=== PATIENT | male | born 2000 | race Caucasian/White ===

== ENCOUNTER 2025-01-24 22:27 | Emergency (ER) | payer OTHER ==
[~2025-01-24] VITALS: Ht 175.3 cm; Wt 59.5 kg
[2025-01-24] MEDS: TETanus/Pertussis (Acell)/Diphther VAC/PF (Tdap-Adult) 0.5ml syringe IMVAC ONE (23:31)
[2025-01-24] MEDS: amox tr/potassium clavulanate 875/125mg TAB PO ONE (23:32)
[2025-01-24] MEDS ORDERED: AMOX-117 PO (23:33)
[2025-01-24 23:34] VITALS: BP 127/81; PULSE 98; RESP 18; TEMP 98.4; O2SAT 100
== END 2025-01-24 23:41 | disposition home or self-care (01) ==
LOC: ER 22:28
DX: S60.311A Abrasion of right thumb, initial encounter (principal); W54.0XXA Bitten by dog, initial encounter; Y93.89 Activity, other specified; Y92.89 Other specified places as the place of occurrence of the external cause; Y99.8 Other external cause status
CPT/HCPCS: 90471; 90715; 99283

== ENCOUNTER 2025-10-31 13:25 | Inpatient (IN) | payer OTHER ==
[~2025-10-31] VITALS: Ht 177.8 cm; Wt 59.1 kg
[2025-10-31 14:03] LABS: MEAN PLATELET VOLUME 8.8 FL (7.4-10.4); RED CELL DISTRIBUTION WIDTH 19.5 % (11.5-14.5)
--- NOTE | 2025-10-31 14:10 | Physician Documentation ---
History of Present Illness Chief Complaint: Abdominal Pain Stated Complaint: ABD PAIN/VOMITING Time Seen by MD: 13:56 Mode of Arrival: POV HPI The patient is a 25-year-old male with no significant past medical history who presents with two days of lower abdominal pain. He reports constipation but has been passing small stools today. He has been taking sodium docusate. He has had recurrent vomiting today. No blood. The patient admits to drinking around six shots of whiskey daily. Medication Reconciliation Allergies: Coded Allergies: No Known Allergies (Unverified , 10/31/25) Review of Systems ROS A 10 system review is negative except as noted in the HPI. Physical Exam Vital Signs: Temperature: 98.4, Source: Temporal, Heart Rate: 123, Respiratory Rate: 16, BP: 138/83, Pulse Oximetry: 98, Weight: 59.090 Oxygen Flow Rate: 0 Physical Exam Physical Exam Vitals and nursing note reviewed. Constitutional: General: Patient is awake, alert, oriented x 4 in no acute distress and well appearing. Speech is clear and lucid. Appearance: Normal appearance. Patient is not ill-appearing, toxic-appearing or diaphoretic. HENT: Head: Normocephalic and atraumatic. Mouth/Throat: Mouth: Mucous membranes are moist. Pharynx: Oropharynx is clear. Eyes: General: No scleral icterus. Extraocular Movements: Extraocular movements intact. Pupils: Pupils are equal, round, and reactive to light. Neck: Supple, no Kernig or Brudzinski sign. Cardiovascular: Rate and Rhythm: Normal rate and regular rhythm. Heart sounds: No murmur heard. Pulmonary: Effort: No respiratory distress. Breath sounds: No wheezing, rhonchi or rales. Abdominal: General: There is no distension. Palpations: There is no fluid wave, hepatomegaly or mass. Tenderness: Lower abdominal tenderness bilaterally. No rebound or guarding. Musculoskeletal: General: No swelling or deformity. Skin: Coloration: Skin is not jaundiced. Findings: No erythema or rash. Neurological: Mental Status: Patient is alert. Progress Progress Note 1819: Accepted by Inpatient medicine physician Dr. Simon, who does request that paracentesis be done in ER prior to patient going up to floor. Results/Orders Results/Orders Orders - DICKSON MENDEZ MD Urinalysis, Cult If Indicated (10/31/25 13:34) Cbc/Diff (10/31/25 13:34) BMP (10/31/25 13:34) Lipase (10/31/25 13:34) CMP (10/31/25 13:34) Procalcitonin (10/31/25 14:03) MG (10/31/25 14:03) Ethanol (10/31/25 14:03) Drug Screen, Urine (10/31/25 14:03) Ct Abdomen Pelvis (10/31/25 14:04) Vital Signs 10/31/25 13:31 Temp 98.4 Pulse 123 Resp 16 B/P (MAP) 138/83 Pulse Ox 98 O2 Flow Rate 0 Laboratory Tests Test 10/31/25 13:45 CBC Comment Chemistry Comments EKG/XRAY/CT/US/VASC/MRI CT : Impression CAT SCAN Patient: DANILO DUTTA Medical Record: [id number] [facility] : 2000, Age: 25 Sex: Male Location: ER Patient Status: [facility] ER Service Date/Time: 10/31/251557 Ordering Physician: DICKSON MENDEZ MD Exam: CT ABDOMEN PELVIS EXAM: CT CT ABDOMEN PELVIS W/ IV CONTRAST History: Lower abdominal pain COMPARISON: None TECHNIQUE: Multidetector spiral CT of the abdomen and pelvis was performed from lung bases to pubic symphysis. Intravenous contrast was administered during this examination. Portal venous imaging was obtained. Axial, coronal and sagittal multiplanar reformats were performed by the technologist on a separate workstation. Radiation Dose : 1. Abdomen/Pelvis: CTDIvol 8.2 mGy, DLP 433 mGy*cm. CONTRAST: Type of contrast: Omnipaque Contrast injected: 100 ml FINDINGS: Lung Bases: No acute or significant lung base finding. Normal heart size. No pleural or pericardial effusion. Liver: Diffuse steatosis. Hepatomegaly measuring up to 20 cm. Gallbladder and Biliary Tree: Unremarkable Spleen: Unremarkable Pancreas: The pancreas is normal in appearance without focal lesions or abnormal enhancement. Adrenal Glands: Unremarkable Kidneys: No hydronephrosis. Bladder: Unremarkable Bowel: The stomach is grossly normal in appearance. No bowel obstruction. Concentric wall thickening throughout the colon is suggestive of infectious/inflammatory colitis. The appendix is not visualized; however, no secondary findings of acute appendicitis identified. Ascites: Moderate to large volume abdominopelvic ascites. Lymphadenopathy: No mesenteric, retroperitoneal or periportal lymphadenopathy. Abdominal Wall and Mesentery: Unremarkable. Vasculature: The visualized abdominal aorta is normal in size and caliber. Abdominal and pelvic vessels demonstrate normal enhancement. Pelvic Organs: Unremarkable Musculoskeletal: No aggressive focal bony lesions, acute fractures or dislocation. IMPRESSION: 1. Concentric wall thickening throughout the colon is suggestive of infectious/inflammatory colitis. 2. Moderate to large volume abdominopelvic ascites. 3. Hepatomegaly and hepatic steatosis. Radiation optimization: All CT scans at this facility use at least one of these dose optimization techniques: automated exposure control mA and/or kV adjustment per patient size (includes targeted exams where dose is matched to clinical indication) or iterative reconstruction. Electronically Signed by:KALPESH GAO MD Date & Time: 10/31/251635 Dictated by: KALPESH GAO MD Dictation date and time: 10/31/251635 Primary Care Provider: NO PRIMARY CARE PROVIDER cc: DICKSON MENDEZ MD ~ Ultrasound : Impression Patient: DANILO DUTTA Medical Record: [id number] [facility] : 2000, Age: 25 Sex: Male Location: ER Patient Status: [facility] ER Service Date/Time: 10/31/251447 Ordering Physician: DICKSON MENDEZ MD Exam: ULTRASOUND OF ABDOMEN CLINICAL INFORMATION: 25 years old, Male; RUQ. TECHNIQUE: Grayscale sonographic imaging of the right upper quadrant of the abdomen was performed, assisted by color Doppler techniques. COMPARISON: None FINDINGS: The gallbladder wall measures 2.4 mm in thickness, within normal limits. No stones are seen. Negative reported sonographic Mendoza's sign. The common bile duct measures 4.9 mm in diameter, within normal limits. Mildly coarsened liver echotexture. Possible nodular contour of the liver. Liver is within normal limits in size, measuring up to 13.8 cm in craniocaudal dimension. Moderate ascites. Portal vein is patent with normal hepatopetal flow. The pancreas is obscured by bowel gas. The right kidney measures 9.3 cm. There is no hydronephrosis. Right renal cortical echogenicity and cortical thickness are within normal limits. IMPRESSION: 1. Coarsened liver echotexture. Possible subtle nodular contour of the liver, may be seen with cirrhosis in the appropriate clinical setting. Correlate with clinical findings. 2. Moderate ascites. 3. No sonographic evidence of acute cholecystitis. Electronically Signed by:DAVID ANDERSON DO Date & Time: 10/31/25 163 Dictated by: DAVID ANDERSON DO Dictation date and time: 10/31/25 163 Primary Care Provider: NO PRIMARY CARE PROVIDER cc: DICKSON MENDEZ MD ~ Medical Decision Making Additional information obtaine: family Findings This 25-year-old male presented with generalized abdominal pain. Laboratory features include transaminitis with elevated bilirubin and small leukocytosis. Ultrasound and CT of the abdomen pelvis both confirm moderate ascites. He will require paracentesis to rule out spontaneous bacterial peritonitis. Our FRONT OFFICE SECRETARY, Arlene Bagley, has kindly agreed to perform this. Differential Dx:Considerations: Esophagitis, Gastritis/PUD, Gastroenteritis, Urinary tract infection, Other Departure Disposition: ADMITTED INPATIENT Admitted to Inpatient Unit: to hospitalist Impression: Primary Impression: Abdominal pain Condition: Fair Referrals: NO PRIMARY CARE PROVIDER (PCP) Signature Scribe Signature: . Attestation: . DICKSON MENDEZ MD Oct 31, 2025 14:10 ARLENE BAGLEY NP Oct 31, 2025 18:07
[2025-10-31 14:17] LABS: CREATININE 1.21 MG/DL (0.60-1.10); TOTAL CARBON DIOXIDE 15.3 MMOL/L (24-32); eCRCL 79 ML/MIN; eGFR 74 ML/MIN
[2025-10-31 14:26] LABS: LYMPHOCYTES % (MANUAL) 7.0 % (21-51); MONOCYTES % (MANUAL) 5.0 % (2-12); NEUTROPHILS % (MANUAL) 88.0 % (42-75); PLATELET ESTIMATE NORMAL
[2025-10-31] MEDS ORDERED: iohexol 300mg/ml 100ml inj. ONE (14:28)
[2025-10-31 15:11] LABS: ETHANOL 120.0 MG/DL (<10)
[2025-10-31] MEDS: ondansetron/PF 4mg/2ml inj IV ONE (15:15)
[2025-10-31] MEDS: magnesium sulf-water 2g/50mL 50 ML IV ONE (16:23)
[2025-10-31] MEDS: normal saline 1000ml 1,000 ML IV ONE (16:23)
[2025-10-31] MEDS: potassium CL 10mEq/100ml bag 100 ML IV SCH (16:24)
--- NOTE | 2025-10-31 16:33 | RADIOLOGY REPORT ---
CLINICAL INFORMATION: 25 years old, Male; RUQ. TECHNIQUE: Grayscale sonographic imaging of the right upper quadrant of the abdomen was performed, assisted by color Doppler techniques. COMPARISON: None FINDINGS: The gallbladder wall measures 2.4 mm in thickness, within normal limits. No stones are seen. Negative reported sonographic Mendoza's sign. The common bile duct measures 4.9 mm in diameter, within normal limits. Mildly coarsened liver echotexture. Possible nodular contour of the liver. Liver is within normal limits in size, measuring up to 13.8 cm in craniocaudal dimension. Moderate ascites. Portal vein is patent with normal hepatopetal flow. The pancreas is obscured by bowel gas. The right kidney measures 9.3 cm. There is no hydronephrosis. Right renal cortical echogenicity and cortical thickness are within normal limits. IMPRESSION: 1. Coarsened liver echotexture. Possible subtle nodular contour of the liver, may be seen with cirrhosis in the appropriate clinical setting. Correlate with clinical findings. 2. Moderate ascites. 3. No sonographic evidence of acute cholecystitis.
--- NOTE | 2025-10-31 16:38 | RADIOLOGY REPORT ---
EXAM: CT CT ABDOMEN PELVIS W/ IV CONTRAST History: Lower abdominal pain COMPARISON: None TECHNIQUE: Multidetector spiral CT of the abdomen and pelvis was performed from lung bases to pubic symphysis. Intravenous contrast was administered during this examination. Portal venous imaging was obtained. Axial, coronal and sagittal multiplanar reformats were performed by the technologist on a separate workstation. Radiation Dose : 1. Abdomen/Pelvis: CTDIvol 8.2 mGy, DLP 433 mGy*cm. CONTRAST: Type of contrast: Omnipaque Contrast injected: 100 ml FINDINGS: Lung Bases: No acute or significant lung base finding. Normal heart size. No pleural or pericardial effusion. Liver: Diffuse steatosis. Hepatomegaly measuring up to 20 cm. Gallbladder and Biliary Tree: Unremarkable Spleen: Unremarkable Pancreas: The pancreas is normal in appearance without focal lesions or abnormal enhancement. Adrenal Glands: Unremarkable Kidneys: No hydronephrosis. Bladder: Unremarkable Bowel: The stomach is grossly normal in appearance. No bowel obstruction. Concentric wall thickening throughout the colon is suggestive of infectious/inflammatory colitis. The appendix is not visualized; however, no secondary findings of acute appendicitis identified. Ascites: Moderate to large volume abdominopelvic ascites. Lymphadenopathy: No mesenteric, retroperitoneal or periportal lymphadenopathy. Abdominal Wall and Mesentery: Unremarkable. Vasculature: The visualized abdominal aorta is normal in size and caliber. Abdominal and pelvic vessels demonstrate normal enhancement. Pelvic Organs: Unremarkable Musculoskeletal: No aggressive focal bony lesions, acute fractures or dislocation. IMPRESSION: 1. Concentric wall thickening throughout the colon is suggestive of infectious/inflammatory colitis. 2. Moderate to large volume abdominopelvic ascites. 3. Hepatomegaly and hepatic steatosis. Radiation optimization: All CT scans at this facility use at least one of these dose optimization techniques: automated exposure control mA and/or kV adjustment per patient size (includes targeted exams where dose is matched to clinical indication) or iterative reconstruction.
[2025-10-31] MEDS ORDERED: acetaminophen 650mg rectal suppository RC PRN (18:10)
[2025-10-31] MEDS ORDERED: magnesium Cl slow-release 64mg tablet PO PRN (18:10)
[2025-10-31] MEDS ORDERED: mag hydrox/Alum hydrox/simeth 30ml oral suspension PO PRN (18:10)
[2025-10-31] MEDS ORDERED: bisacodyl 10mg suppository rectal RC PRN (18:10)
[2025-10-31] MEDS ORDERED: ondansetron 4mg rapidly disintigrating tab PO PRN (18:10)
[2025-10-31] MEDS ORDERED: ondansetron/PF 4mg/2ml inj IV PRN (18:10)
[2025-10-31] MEDS ORDERED: magnesium sulf-water 2g/50mL 50 ML IV PRN (18:10)
[2025-10-31] MEDS ORDERED: HYDROcodone/acetaminophen 10/325mg tab PO PRN (18:10)
[2025-10-31] MEDS ORDERED: magnesium sulf-water 4G/100mL 100 ML IV PRN (18:10)
[2025-10-31] MEDS ORDERED: dextrose 50%-water 50ml dispensing syringe IV PRN (18:10)
[2025-10-31] MEDS ORDERED: magnesium hydroxide 30ml (MOM) UD suspension PO PRN (18:10)
[2025-10-31] MEDS ORDERED: haloperidol lactate 5mg/ml inj IM PRN (18:10)
[2025-10-31 18:12] LABS: INR 1.4 INR
--- NOTE | 2025-10-31 18:17 | HISTORY AND PHYSICAL ---
History & Physical Providers to CC ~ chief complaint, abdominal pain, nausea vomiting History of Present Illness Reason for Admit\Complaint: As above History of Present Illness The patient is a 25-year-old male with no significant past medical history except history of chronic alcohol abuse including currently, chronic tobacco abuse including currently and marijuana use, history of tonsillectomy, anemia hemoglobin 12.7, presented today to emergency department chief complaint abdominal pain associated nausea vomiting; in addition this is the patient who presents with two days of lower abdominal pain. He reports constipation but has been passing small stools today. He has been taking sodium docusate. He has had recurrent vomiting today. No blood. The patient admits to drinking around six shots of whiskey daily. Department he was evaluated by physician was diagnosed with a alcohol liver disease, abdominal pain, and decision was made to admit patient for further evaluation and treatment, no additional complaint or concern, paracentesis procedure pending in ER now. Allergies: Coded Allergies: No Known Allergies (Unverified , 10/31/25) Active prescriptions I reviewed reconciled Home Medications Home Medications Active Past Medical History Past Medical History As in HPI Past Surgical History Surgical History Comment Tonsillectomy Past Social History Social History Comment Positive for chronic tobacco alcohol abuse, chronically and marijuana abuse, deny illicit drug use, live with the family good social support Health Maintenance Health Maintenance As above ROS ROS Constitutional : no fever , no chills, or weakness. No diaphoresis. Allergic/Immunologic, no lymphadenopathy, no hives, no skin eruptions. Eyes, no recent visual changes, no eye pain, no photophobia. Ears, nose, mouth, throat, no sore throat, no nosebleed, no ear pain. Cardiovascular, no palpitations, skipped beats, chest pain, no peripheral edema, Respiratory, no dyspnea, orthopnea, cough, hemoptysis, chest wall pain. Gastrointestinal, has abdominal pain, nausea, vomiting, has chronic constipation no diarrhea no history of GI bleed : no dysuria, hematuria, pelvic pain, urethral d/c. Endocrine, no polyuria, polydipsia, recent unintentional weight gain or loss. Hematologic/Lymphatic, no petechiae, no enlarged lymph nodes, no bone pain. Integumentary, no rash, no skin lesions, Musculoskeletal, no muscle aches, or pain, no muscle cramps, no recent change in gait Neurological, no dizziness, no headache, no syncope, no paresthesia. Psychiatric, no delusions, visual hallucinations, or hearing hallucinations. ROS - in rest is as in HPI. Exam Vitals: Vital Signs Date Time Temp Pulse Resp B/P (MAP) Pulse Ox O2 Delivery O2 Flow Rate FiO2 10/31/25 17:45 108 19 125/77 (93) 98 0 10/31/25 13:31 98.4 Vital signs, stable ,afebrile. Tachycardic, Pulse Oximetry reflects adequate oxygenation. BMI is eighteen, weight 59 kg General: well developed, well nourished. Awake , alert, and oriented x4, resting comfortably in the bed, in no acute distress . Skin: Warm, dry, no pallor, no rash or petechiae. HEENT: Atraumatic, normocephalic, EOMI, anicteric sclera B; pink conjunctiva; PERRLA, normal oropharynx, moist oral and nasal mucosa. Tympanic membrane , nose , throat clear. Neck: Trachea midline. Supple, full range of motion, no JVD, bruit , hepatojugular reflex , lymphadenopathy or masses, or other lesions Cardiac: Regular rhythm, regular rate no murmurs, rubs, or gallops. Normal S1 and S2, no S3 noticed. PMI is normal. Respiratory: Equal breath sounds bilaterally, no tachypnea; lungs clear to auscultation bilaterally, no wheezing ,rub or rales, or crackles. Chest wall is symmetric and without deformity. No signs of trauma. Chest wall is nontender. No signs of respiratory distress. Resonance is normal upon percussion bilaterally. Gastrointestinal: Abdomen symmetric, , with bulging flanks associated with positive fluid wave sign, consistent with ascites, soft, tender to palpation periumbilically, normal bowel sounds x4 quadrant, normoactive, no hepatosplenomegaly , no masses , no bruit, no flank pain bilaterally. No voluntary guarding, rebound, or rigidity. No tenderness to percussion. No pulsatile masses. Equal femoral pulses. No Mendoza's sign or McBurney point tenderness. Back; no CVA tenderness bilaterally, no deformities. Neck and back are without deformity as well. No tenderness noted on palpation of the spinous processes. Spinous processes are midline. Cervical, thoracic, and lumbar paraspinal muscles are not tender and are without spasm. : normal external genitalia, without lesions, swelling, masses or tenderness. Musculoskeletal: Extremities, normal range of motion, non-tender, muscle strength 5/5 x 4. Negative Homans signs bilaterally on lower extremity. Distal pulses full symmetrical, no clubbing, cyanosis , edema. Neurological: Speech is clear, alert, and oriented x 4. No motor or sensory deficit, deep tendon reflexes normal, cerebellar intact. Cranial nerves II-XII intact. Psych: Alert and or appropriate, normal affect. Vascular: Good distal pulses, which are equal x4; capillary refill less than 2 seconds. Lymphatic, no lymphadenopathy. Diagnostic Data Last Recorded Lab Results: 10/31/25 1345 10/31/25 1345 Diagnostic Data: Laboratory Tests Test 10/31/25 17:55 Prothrombin Time 14.0 SECONDS (9.0-12.0) H INR International Normalized Ratio 1.4 INR Coagulation Comments Counseling Services Smoking & Tobacco Cessation: 3-10 Minutes Advance Care Planning Advanced Care plannin - 30 Minutes Additional Plan Assessment Chronic alcoholism including ongoing abusing alcohol Chronic tobacco use disorder including ongoing use of tobacco Chronic marijuana use including currently Alcohol liver disease Ascites Alcoholic hepatitis Anemia hemoglobin 12.7 Hypokalemia Hypomagnesemia Hypoalbuminemia Acute colitis Additional comorbidities, history of tonsillectomy, chronic constipation, Plan IV Lasix prn Alcohol withdrawal protocol IV antibiotics Replace electrolytes Paracentesis pending provider in ER we will complete it soon PT evaluation and treatment Stool study Seizure precautions Substance abuse navigator consult Consulted for 5 minutes to stop using tobacco marijuana alcohol patient states is not ready yet to quit I reconciled home medications DVT gastropathy prophylaxis addressed Sepsis Screening Reassessment Date: Oct 31, 2025 Date of Service: Oct 31, 2025 Billing Provider: KINGSTON CHAMPAGNE MD Common Visit Codes: 93599-SJEACSR INP/OBS CARE (HIGH) Secondary Visit Codes: 43719-MSTGW CHNG SMOKING 3-10M, 40012-[id number] CARE PLAN 30 MINUTES KINGSTON CHAMPAGNE MD Oct 31, 2025 18:17
[2025-10-31 19:01] LABS: APTT 30 SECONDS (22-32)
[2025-10-31 19:12] LABS: LACTATE DEHYDROGENASE 487 U/L (85-227); PHOSPHORUS 4.3 MG/DL (2.3-4.5); PRO BRAIN NATRIURETIC PEPTIDE 84 PG/ML (0-125)
[2025-10-31] MEDS: K and/or MAG REPLACEMENT MC SCH (20:00)
[2025-10-31] MEDS: normal saline 1000ml 1,000 ML IV SCH (20:07)
[2025-10-31] MEDS: potassium Cl 20 mEq SR tablet PO PRN ×2 (20:17)
[2025-10-31] MEDS: docusate sod 100mg capsule PO SCH (20:17)
[2025-10-31 20:33] LABS: LEUKOCYTE ESTERASE ,URINE NEGATIVE (Neg); NITRITES, URINE NEGATIVE (Neg); OCCULT BLOOD,URINE NEGATIVE (Neg)
[2025-10-31 20:35] LABS: UA COLLECTION TYPE CLN CATCH MIDSTREAM
[2025-10-31] MEDS: thiamine 100mg/ml 2ml inj. IV SCH (21:33)
[2025-11-01] MEDS: diazepam inj 5 MG/ML inj. IV PRN (01:36)
[2025-11-01] MEDS: potassium Cl 40MEQ/1/2NS 520ml 520 ML IV PRN (02:03)
[2025-11-01 04:00] LABS: CHOL/HDL RATIO 11.2 (0.00-4.99); CREATININE 0.82 MG/DL (0.60-1.10); LDL CHOLESTEROL 235 MG/DL (50-100); TOTAL CARBON DIOXIDE 29.8 MMOL/L (24-32); eCRCL 117 ML/MIN; eGFR > 90 ML/MIN
[2025-11-01 04:50] LABS: MEAN PLATELET VOLUME 8.9 FL (7.4-10.4); RED CELL DISTRIBUTION WIDTH 18.5 % (11.5-14.5)
[2025-11-01 05:43] LABS: LYMPHOCYTES % (MANUAL) 5.0 % (21-51); MONOCYTES % (MANUAL) 6.0 % (2-12); NEUTROPHILS % (MANUAL) 89.0 % (42-75)
[2025-11-01 05:44] LABS: PLATELET ESTIMATE DECREASED
[2025-11-01] MEDS: pantoprazole 40mg Tablet.DR PO SCH (07:32)
[2025-11-01 07:55] VITALS: BP 112/65; PULSE 90; RESP 16; TEMP 98.2; O2SAT 96
[2025-11-01] MEDS: CefTRIAXone/D5W-Rocephin 1gm 50 ML IV SCH (09:27)
[2025-11-01] MEDS: folic acid 1mg/0.2ml inj IV SCH (09:36)
[2025-11-01] MEDS ORDERED: NO HOME MEDS (09:51)
[2025-11-01 10:00] VITALS: BP 119/69; PULSE 89; RESP 14; TEMP 98.5; O2SAT 99
[2025-11-01 18:00] VITALS: BP 115/68; PULSE 80; RESP 21; TEMP 98.2; O2SAT 97
--- NOTE | 2025-11-01 18:12 | CARDIOLOGY REPORT ---
APPROVED REPORT EXAM: Comprehensive 2D, Doppler, and color-flow Echocardiogram. Patient Location: [address] Heart Rate: 80'S bpm Rhythm: SINUS Indications ARRHYTHMIA ETOH Shoe Lacer: NONE Previous echo: NONE 2D Dimensions IVSd 0.8 (0.7-1.1cm) LVDd 3.6 cm PWd 0.8 (0.7-1.1cm) IVSs 1.0 (0.8-1.2cm) LVDs 2.2 (2.5-4.0cm) PWs 0.9 (0.8-1.2cm) LVOT Diameter 1.95 (1.8-2.4cm) LVEF(%) 68.5 (>50%) FS (%) 37.5 % SV 36.4 ml CO 5.4 L/min M-Mode Dimensions Left Atrium(MM) 2.65 (2.5-4.0cm) Aortic Root 2.43 (2.2-3.7cm) Aortic Cusp Exc 1.76 (1.5-2.0cm) Aortic Valve AoV Peak Gokul. 163.4 cm/s AoV VTI 30.8 cm AO Peak GR. 10.7 mmHg AO Mean GR. 5 mmHg LVOT VTI 24.82 cm LVOT Peak Gokul. 127.5 cm/s BRUCE(VTI)/BSA 2.41 cm2/m2 BRUCE (VTI) 2.41 cm2 AV DI 0.81 % Mitral Valve MV E Velocity 108.7 cm/s MV Peak Gr. 10 mmHg MV DECEL TIME 324 ms MV A Velocity 62.2 cm/s MV PHT 60 ms E/A Ratio 1.7 MVA (PHT) 3.67 cm2 MV VMax 159.2 cm/s Tricuspid Valve TR P. Velocity 201 cm/s RAP ESTIMATE 10 mmHg TR Peak Gr. 16 mmHg RVSP 26 mmHg Pulmonary Vein S1 Velocity 76.3 cm/s D2 Velocity 30.9 cm/s PVa Velocity 32.3 cm/s PVa Duration 88 msec LEFT VENTRICLE Normal LV size and wall thickness. Overall systolic function is normal. Overall LVEF is 65-70%. RIGHT VENTRICLE RV appears normal in size and function. ATRIA The left atrium size is normal. AORTIC VALVE Trileaflet AV appears normal without stenosis. No insufficiency by color and spectral flow Doppler. MITRAL VALVE Mild MV annular calcification without stenosis. Trace regurgitation by color and spectral flow Doppler. TRICUSPID VALVE TV appears structurally normal with trace regurgitation by color and spectral flow Doppler. PULMONIC VALVE Normal PV without stenosis, physiologic insufficiency by color and spectral flow Doppler. GREAT VESSELS The aortic root is normal in size. PERICARDIUM Normal pericardium. No effusion. Other Information Study Quality: Adequate but no subcostal window. Conclusion Overall LVEF is 65-70%. Normal LV size and wall thickness. Overall systolic function is normal. RV appears normal in size and function. Trileaflet AV appears normal without stenosis. No insufficiency by color and spectral flow Doppler. Mild MV annular calcification without stenosis. Trace regurgitation by color and spectral flow Doppler. TV appears structurally normal with trace regurgitation by color and spectral flow Doppler. Normal PV without stenosis, physiologic insufficiency by color and spectral flow Doppler. Normal pericardium. No effusion.
--- NOTE | 2025-11-01 18:24 | PROGRESS NOTE ---
Daily Progress Note Providers to CC Feels better today, better appetite better sleep ~ Central Line/PICC still needed: No Caldera-Non Protocol Caldera Indications Met/Not Met: F/C Indications Not Met Antibiotic Timeout Antibiotic Ordered?: Yes MRSA Education MRSA Education Provided to pt: Yes Subjective as Above Objective Vital Signs Date Time Temp Pulse Resp B/P (MAP) Pulse Ox O2 Delivery O2 Flow Rate FiO2 11/01/25 10:00 98.5 89 14 119/69 (86) 99 Room Air 11/01/25 08:00 0.0 Vital signs, stable ,afebrile. Pulse Oximetry reflects adequate oxygenation. General: well developed, well nourished. Awake , alert, and oriented x4, resting comfortably in the bed, in no acute distress . Skin: Warm, dry, no pallor, no rash or petechiae. HEENT: Atraumatic, normocephalic, EOMI, anicteric sclera B; pink conjunctiva; PERRLA, normal oropharynx, moist oral and nasal mucosa. Tympanic membrane , nose , throat clear. Neck: Trachea midline. Supple, full range of motion, no JVD, bruit , hepatojugular reflex , lymphadenopathy or masses, or other lesions Cardiac: Regular rhythm, regular rate no murmurs, rubs, or gallops. Normal S1 and S2, no S3 noticed. PMI is normal. Respiratory: Equal breath sounds bilaterally, no tachypnea; lungs clear to auscultation bilaterally, no wheezing ,rub or rales, or crackles. Chest wall is symmetric and without deformity. No signs of trauma. Chest wall is nontender. No signs of respiratory distress. Resonance is normal upon percussion bilaterally. Gastrointestinal: Abdomen symmetric, non-distended, soft, non-tender, normal bowel sounds x4 quadrant, normoactive, no hepatosplenomegaly , no masses , no bruit, no flank pain bilaterally. No voluntary guarding, rebound, or rigidity. No tenderness to percussion. No pulsatile masses. Equal femoral pulses. No Mendoza's sign or McBurney point tenderness. Back; no CVA tenderness bilaterally, no deformities. Neck and back are without deformity as well. No tenderness noted on palpation of the spinous processes. Spinous processes are midline. Cervical, thoracic, and lumbar paraspinal muscles are not tender and are without spasm. : normal external genitalia, without lesions, swelling, masses or tenderness. Musculoskeletal: Extremities, normal range of motion, non-tender, muscle strength 5/5 x 4. Negative Homans signs bilaterally on lower extremity. Distal pulses full symmetrical, no clubbing, cyanosis , edema. Neurological: Speech is clear, alert, and oriented x 4. No motor or sensory deficit, deep tendon reflexes normal, cerebellar intact. Cranial nerves II-XII intact. Psych: Alert and or appropriate, normal affect. Vascular: Good distal pulses, which are equal x4; capillary refill less than 2 seconds. Lymphatic, no lymphadenopathy. Result Diagram: 11/01/25 0421 11/01/25 0325 Coagulation Studies Laboratory Tests Test 10/31/25 17:55 Prothrombin Time 14.0 SECONDS (9.0-12.0) H INR International Normalized Ratio 1.4 INR Activated Partial Thromboplast Time 30 SECONDS (22-32) Coagulation Comments Problem\Assessment\Plan Assessment Chronic alcoholism including ongoing abusing alcohol Chronic tobacco use disorder including ongoing use of tobacco Chronic marijuana use including currently Alcohol liver disease Ascites Alcoholic hepatitis Anemia hemoglobin 12.7 Hypokalemia Hypomagnesemia Hypoalbuminemia Acute colitis Additional comorbidities, history of tonsillectomy, chronic constipation, Plan IV Lasix prn Alcohol withdrawal protocol IV antibiotics Replace electrolytes Paracentesis canceled secondary to technical challenges PT evaluation and treatment Stool study Seizure precautions Substance abuse navigator consult I reconciled home medications DVT gastropathy prophylaxis addressed Sepsis Screening Reassessment Date: Nov 01, 2025 Date of Service: Nov 01, 2025 Billing Provider: KINGSTON CHAMPAGNE MD Common Visit Codes: [id number] INP/OBS CARE(HIGH) KINGSTON CHAMPAGNE MD Nov 01, 2025 18:24
[2025-11-01 21:09] VITALS: RESP 17
[2025-11-01 21:22] LABS: OCCULT BLOOD STOOL NEGATIVE (Neg)
[2025-11-01] MEDS: nicotine 21mg patch - 24 hr TD SCH (22:15)
[2025-11-02 06:00] VITALS: BP 123/70; PULSE 87; RESP 16; TEMP 97.9; O2SAT 98
[2025-11-02 06:19] LABS: MEAN PLATELET VOLUME 9.4 FL (7.4-10.4); RED CELL DISTRIBUTION WIDTH 18.0 % (11.5-14.5)
[2025-11-02 06:37] LABS: CREATININE 0.95 MG/DL (0.60-1.10); TOTAL CARBON DIOXIDE 24.1 MMOL/L (24-32); eCRCL 101 ML/MIN; eGFR > 90 ML/MIN
[2025-11-02 08:48] LABS: LYMPHOCYTES % (MANUAL) 10.0 % (21-51); MONOCYTES % (MANUAL) 4.0 % (2-12); NEUTROPHILS % (MANUAL) 86.0 % (42-75); PLATELET ESTIMATE DECREASED
[2025-11-02 10:00] VITALS: BP 135/77; PULSE 109; RESP 16; TEMP 98.5; O2SAT 99
[2025-11-02] MEDS ORDERED: diazepam inj 5 MG/ML inj. IV PRN (18:10)
[2025-11-02 18:56] VITALS: BP 123/76; PULSE 78; RESP 14; TEMP 98.5; O2SAT 98
--- NOTE | 2025-11-02 19:29 | PROGRESS NOTE ---
Daily Progress Note Providers to CC Feels better today, less abdominal distention, appetite is better ~ Central Line/PICC still needed: No Caldera-Non Protocol Caldera Indications Met/Not Met: F/C Indications Not Met Antibiotic Timeout Antibiotic Ordered?: Yes MRSA Education MRSA Education Provided to pt: Yes Subjective As above Objective Vital Signs Date Time Temp Pulse Resp B/P (MAP) Pulse Ox O2 Delivery O2 Flow Rate FiO2 11/02/25 18:56 98.5 78 14 123/76 (92) 98 Room Air 11/02/25 08:00 0.0 Vital signs, stable ,afebrile. Pulse Oximetry reflects adequate oxygenation. General: well developed, well nourished. Awake , alert, and oriented x4, resting comfortably in the bed, in no acute distress . Skin: Warm, dry, no pallor, no rash or petechiae. HEENT: Atraumatic, normocephalic, EOMI, anicteric sclera B; pink conjunctiva; PERRLA, normal oropharynx, moist oral and nasal mucosa. Tympanic membrane , nose , throat clear. Neck: Trachea midline. Supple, full range of motion, no JVD, bruit , hepatojugular reflex , lymphadenopathy or masses, or other lesions Cardiac: Regular rhythm, regular rate no murmurs, rubs, or gallops. Normal S1 and S2, no S3 noticed. PMI is normal. Respiratory: Equal breath sounds bilaterally, no tachypnea; lungs clear to auscultation bilaterally, no wheezing ,rub or rales, or crackles. Chest wall is symmetric and without deformity. No signs of trauma. Chest wall is nontender. No signs of respiratory distress. Resonance is normal upon percussion bilaterally. Gastrointestinal: Abdomen symmetric, non-distended, soft, non-tender, normal bowel sounds x4 quadrant, normoactive, no hepatosplenomegaly , no masses , no bruit, no flank pain bilaterally. No voluntary guarding, rebound, or rigidity. No tenderness to percussion. No pulsatile masses. Equal femoral pulses. No Mendoza's sign or McBurney point tenderness. Back; no CVA tenderness bilaterally, no deformities. Neck and back are without deformity as well. No tenderness noted on palpation of the spinous processes. Spinous processes are midline. Cervical, thoracic, and lumbar paraspinal muscles are not tender and are without spasm. : normal external genitalia, without lesions, swelling, masses or tenderness. Musculoskeletal: Extremities, normal range of motion, non-tender, muscle strength 5/5 x 4. Negative Homans signs bilaterally on lower extremity. Distal pulses full symmetrical, no clubbing, cyanosis , edema. Neurological: Speech is clear, alert, and oriented x 4. No motor or sensory deficit, deep tendon reflexes normal, cerebellar intact. Cranial nerves II-XII intact. Psych: Alert and or appropriate, normal affect. Vascular: Good distal pulses, which are equal x4; capillary refill less than 2 seconds. Lymphatic, no lymphadenopathy. Result Diagram: 11/02/25 0511/[id number]/25518 Coagulation Studies Laboratory Tests Test 10/31/25 17:55 Prothrombin Time 14.0 SECONDS (9.0-12.0) H INR International Normalized Ratio 1.4 INR Activated Partial Thromboplast Time 30 SECONDS (22-32) Coagulation Comments Problem\Assessment\Plan Assessment Chronic alcoholism including ongoing abusing alcohol Chronic tobacco use disorder including ongoing use of tobacco Chronic marijuana use including currently Alcohol liver disease Ascites Alcoholic hepatitis Anemia hemoglobin 12.7 Hypokalemia Hypomagnesemia Hypoalbuminemia Acute colitis Additional comorbidities, history of tonsillectomy, chronic constipation, Plan IV Lasix prn Alcohol withdrawal protocol IV antibiotics Replace electrolytes Paracentesis canceled secondary to technical challenges PT evaluation and treatment Stool study Seizure precautions Substance abuse navigator consult I reconciled home medications DVT gastropathy prophylaxis addressed Sepsis Screening Reassessment Date: Nov 02, 2025 Date of Service: Nov 02, 2025 Billing Provider: KINGSTON CHAMPAGNE MD Common Visit Codes: [id number] INP/OBS CARE(HIGH) KINGSTON CHAMPAGNE MD Nov 02, 2025 19:29
[2025-11-02 22:00] VITALS: BP 135/84; PULSE 79; RESP 28; TEMP 98; O2SAT 99
[2025-11-03 06:00] VITALS: BP_SYST 112; BP_SYST 119; BP_DIAS 69; BP_DIAS 70; PULSE 70; PULSE 73; RESP 16; RESP 20; TEMP 97.7; O2SAT 100; O2SAT 97
[2025-11-03 06:08] LABS: MEAN PLATELET VOLUME 8.8 FL (7.4-10.4); RED CELL DISTRIBUTION WIDTH 18.1 % (11.5-14.5)
[2025-11-03 06:28] LABS: CREATININE 0.87 MG/DL (0.60-1.10); TOTAL CARBON DIOXIDE 25.9 MMOL/L (24-32); eCRCL 110 ML/MIN; eGFR > 90 ML/MIN
[2025-11-03 10:00] VITALS: BP 113/64; PULSE 80; RESP 16; TEMP 97.8; O2SAT 99
[2025-11-03] MEDS: HYDROcodone/acetaminophen 5mg/325mg tablet PO PRN (14:25)
[2025-11-03 15:34] VITALS: RESP 15
[2025-11-03] MEDS ORDERED: POTA-205 PO (15:45)
[2025-11-03] MEDS ORDERED: ePHEDrine 50MG/ML INJ. ONE (15:45)
[2025-11-03] MEDS ORDERED: MULT-1085 PO (15:45)
[2025-11-03] MEDS ORDERED: FURO-150 PO (15:45)
[2025-11-03] MEDS ORDERED: FOLI0.4T6 PO (15:45)
[2025-11-03] MEDS ORDERED: fentaNYL/PF 50MCG/1 ML 2ML syringe ONE (16:04)
[2025-11-03] MEDS ORDERED: propofol inj 20 ML IV ONE (16:10)
--- NOTE | 2025-11-03 19:11 | DISCHARGE SUMMARY ---
Discharge Summary Providers to CC ~ patient feels better today asking to be discharged home for family emergency reasons Discharge Summary Assessment Chronic alcoholism including ongoing abusing alcohol Chronic tobacco use disorder including ongoing use of tobacco Chronic marijuana use including currently Alcohol liver disease Ascites Alcoholic hepatitis Anemia hemoglobin 12.7 Hypokalemia Hypomagnesemia Hypoalbuminemia Acute colitis Additional comorbidities, history of tonsillectomy, chronic constipation, Admission Diagnosis: Abdom pain Admission Diagnosis Comment: Chronic alcoholism including ongoing abusing alcohol Chronic tobacco use disorder including ongoing use of tobacco Chronic marijuana use including currently Alcohol liver disease Ascites Alcoholic hepatitis Anemia hemoglobin 12.7 Hypokalemia Hypomagnesemia Hypoalbuminemia Acute colitis Additional comorbidities, history of tonsillectomy, chronic constipation, Hospital Course DATE OF ADMISSION: October 31, 2025 DATE OF DISCHARGE: November 03, 2025 Discharge Diagnosis\Comment: Chronic alcoholism including ongoing abusing alcohol Chronic tobacco use disorder including ongoing use of tobacco Chronic marijuana use including currently Alcohol liver disease Ascites Alcoholic hepatitis Anemia hemoglobin 12.7 Hypokalemia Hypomagnesemia Hypoalbuminemia Acute colitis Additional comorbidities, history of tonsillectomy, chronic constipation, Operations\Procedures: Non Consultants: ICU Complications: Non Condition on DC: Stable Discharge Summary: The patient is a 25-year-old male with no significant past medical history except history of chronic alcohol abuse including currently, chronic tobacco abuse including currently and marijuana use, history of tonsillectomy, anemia hemoglobin 12.7, presented today to emergency department chief complaint abdominal pain associated nausea vomiting; in addition this is the patient who presents with two days of lower abdominal pain. He reports constipation but has been passing small stools today. He has been taking sodium docusate. He has had recurrent vomiting today. No blood. The patient admits to drinking around six shots of whiskey daily. Department he was evaluated by physician was diagnosed with a alcohol liver disease, abdominal pain, and decision was made to admit patient for further evaluation and treatment, no additional complaint or concern, paracentesis procedure pending in ER now. Patient was extensively evaluated treated, today he feels better, asking to be discharged home for fami ly emergency reasons, I recommended to continue further evaluation and treatment as inpatient condition, patient elected to be discharged risk of severe complications and explained patient understood, medication reconciled, follow-up follow-up with PCP and GI doctor in the morning, today on physical exam Vital signs, stable ,afebrile. Pulse Oximetry reflects adequate oxygen ation. General: well developed, well nourished. Awake , alert, and oriented x4, resting comfortably in the bed, in no acute distress . Skin: Warm, dry, no pallor, no rash or petechiae. HEENT: Atraumatic, normocephalic, EOMI, anicteric sclera B; pink conjunctiva; PERRLA, normal oropharynx, moist oral and nasal mucosa. Tympanic membrane , nose , throat clear. Neck: Trachea midline. Supple, full range of motion, no JVD, bruit , hepatojugular reflex , lymphadenopathy or masses, or other lesions Cardiac: Regular rhythm, regular rate no murmurs, rubs, or gallops. Normal S1 and S2, no S3 noticed. PMI is normal. Respiratory: Equal breath sounds bilaterally, no tachypnea; lungs clear to auscultation bilaterally, no wheezing ,rub or rales, or crackles. Chest wall is symmetric and without deformity. No signs of trauma. Chest wall is nontender. No signs of respiratory distress. Resonance is normal upon percussion bilaterally. Gastrointestinal: Abdomen symmetric, non-distended, soft, non-tender, normal bowel sounds x4 quadrant, normoactive, no hepatosplenomegaly , no masses , no bruit, no flank pain bilaterally. No voluntary guarding, rebound, or rigidity. No tenderness to percussion. No pulsatile masses. Equal femoral pulses. No Mendoza's sign or McBurney point tenderness. Back; no CVA tenderness bilaterally, no deformities. Neck and back are without deformity as well. No tenderness noted on palpation of the spinous processes. Spinous processes are midline. Cervical, thoracic, and lumbar paraspinal muscles are not tender and are without spasm. : normal external genitalia, without lesions, swelling, masses or tenderness. Musculoskeletal: Extremities, normal range of motion, non-tender, muscle strength 5/5 x 4. Negative Homans signs bilaterally on lower extremity. Distal pulses full symmetrical, no clubbing, cyanosis , edema. Neurological: Speech is clear, alert, and oriented x 4. No motor or sensory deficit, deep tendon reflexes normal, cerebellar intact. Cranial nerves II-XII intact. Psych: Alert and or appropriate, normal affect. Vascular: Good distal pulses, which are equal x4; capillary refill less than 2 seconds. Lymphatic, no lymphadenopathy. *Problems/Diagnosis: (1) Abdominal pain Status: Acute Total Time Spent on D/C: > 30 Minutes Date of Service: Nov 03, 2025 Billing Provider: KINGSTON CHAMPAGNE MD Common Visit Codes: [id number] DISCH DAY >30min KINGSTON CHAMPAGNE MD Nov 03, 2025 19:11
[2025-11-04] MEDS ORDERED: diazepam inj 5 MG/ML inj. IV PRN (18:10)
== END 2025-11-03 17:09 | disposition home or self-care (01) | DRG 392 ==
LOC: ER 13:27 → ED HOLD 18:16 → ORTHO 4S 11-01 07:51
PROVIDERS: ADMIT Family Medicine; ATTEND Family Medicine
PROC: BW211ZZ Computerized Tomography (CT Scan) of Abdomen and Pelvis using Low Osmolar Contrast (ICD-10-PCS; principal; 2025-10-31)
DX: K52.9 Noninfective gastroenteritis and colitis, unspecified (principal); E88.09 Other disorders of plasma-protein metabolism, not elsewhere classified; K70.11 Alcoholic hepatitis with ascites; F12.10 Cannabis abuse, uncomplicated; D64.9 Anemia, unspecified; E87.6 Hypokalemia; E83.42 Hypomagnesemia; F17.200 Nicotine dependence, unspecified, uncomplicated; F10.20 Alcohol dependence, uncomplicated; K59.00 Constipation, unspecified
CPT/HCPCS: 36415; 74177; 76700; 80053; 80061; 80320; 81003; 82272; 82550; 83036; 83615; 83690; 83735; 83880; 84100; 84145; 84484; 85007; 85025; 85610; 85730; 87081; 93306; 96365; 96366; 99285; G0378; J0696; J2060; J2405; J2704; J3010; J3360; J3411; J3480; J3490; J7030; Q9967